=== PATIENT | male | born 1955 | race Hispanic/Latino ===

== ENCOUNTER 2018-11-17 07:07 | Emergency (ER) | payer SELFPAY ==
[~2018-11-17 07:07] MED LIST: ADRENALIN ONE
--- NOTE | 2018-11-17 07:19 | Emergency Department Report ---
ED CPR HPI - General Stated Complaint: TRAUMATIC ARREST Time Seen by Provider: 11/17/18 07:15 Source: EMS - History of Present Illness Initial Comments: Patient presents to the emergency department via EMS for traumatic arrest. Per EMS to patient ran into a tree and upon their arrival he was in V. tach. The patient received 2 shots +2 epi's and a bicarbonate. Patient became pulseless and arrived receiving CPR. Place: street Bystander CPR Performed: No AED Applied by Bystander/[employer]arehouse Distribution Specialist: Yes Shock Advised: Yes Number of Shocks Delivered: 2 Initial Findings in the Field: unresponsive, no pulse ROSC in the Field: No Treatments Prior to Arrival: intubation, BMV, epinephrine mgs #, sodium bicarbonate ED Review of Systems ROS: Stated complaint: TRAUMATIC ARREST Other details as noted in HPI Comment: Unobtainable due to pts medical conditions ED Physical Exam - General Limitations: Other (intubated) - Head Head exam: Present: atraumatic, normocephalic - Eye Eye exam: Present: other (no corneal reflex) - ENT ENT exam: Present: mucous membranes moist - Neck Neck exam: Present: other (no obvious deformity) - Respiratory Respiratory exam: Present: other (bilateral breath sounds with bagging) - Cardiovascular Cardiovascular Exam: Present: other (asystole) - GI/Abdominal GI/Abdominal exam: Present: soft - Extremities Exam Extremities exam: Present: other (unable to assess due to the patient's condition) - Back Exam Back exam: Present: normal inspection - Neurological Exam Neurological exam: Present: other (GCS of 3) - Psychiatric Psychiatric exam: Present: other (able to assess due to the patient's condition) ED Medical Decision Making - Medical Decision Making CPR continued in the ED FAST exam done and negative Time of 7:11 AM Critical care attestation.: If time is entered above; I have spent that time in minutes in the direct care of this critically ill patient, excluding procedure time. ED Disposition Clinical Impression: Cardiac arrest Disposition: [id number] Is pt being admited?: No Does the pt Need Aspirin: No Condition: Stable
== END 2018-11-17 11:12 ==
LOC: ED 07:07
DX: I46.9 Cardiac arrest, cause unspecified (principal)
CPT/HCPCS: 92950; 99285; J0171